=== PATIENT | female | born 1980 | race Caucasian/White ===

== ENCOUNTER 2017-05-11 09:54 | Inpatient (IN) | payer MEDICAID ==
[2017-05-11] MEDS: Lactated Ringer's 2,000 ML IV SCH ×2 (10:00→11:00)
[2017-05-11 10:07] VITALS: BMI 24.3
[2017-05-11] MEDS ORDERED: Lactated Ringer's 1,000 ML IV SCH ×2 (10:30→18:42)
[2017-05-11 10:53] LABS: BASO % 0.2 % (0.0-2.0); EOS % 0.3 % (0.0-4.0); HEMOGLOBIN 11.9 g/dL (12.0-16.0); LYMPH # 2.6 K/uL (1.0-4.3); LYMPH % 24.7 % (20.0-40.0); MEAN CELL VOLUME 90.3 fl (81.0-99.0); MEAN CORPUSCULAR HEMOGLOBIN 30.2 pg (27.0-31.0); MEAN CORPUSCULAR HGB CONC 33.4 g/dL (33.0-37.0); MEAN PLATELET VOLUME 9.6 fl (7.2-11.7); MONO # 0.7 K/uL (0.0-0.8); MONO % 6.7 % (0.0-10.0); NEUT # 7.2 K/uL (1.8-7.0); NEUT % 68.1 % (50.0-75.0); NRBC % 0.2 % (0.0-0.0); RBC 3.94 Mil/uL (3.80-5.20); RED CELL DISTRIBUTION WIDTH 14.8 % (11.5-14.5); WHITE BLOOD COUNT 10.5 K/uL (4.8-10.8)
--- NOTE | 2017-05-11 11:14 | OBHP ---
Datetime: 05/11/2017 11:09 IP Adm Impression: Term, intrauterine ; Active labor; Intact Membranes IP Admit Plan: Admit to unit; Initiate labor protocol IP Admit Plan Other: IV Ab Admit Comment, IP Provider: IUP at 40+w c/o CTX since 3am. No SROM. No VB. +FM Wants epidural. PMH: denies PSH denies NKA POBHx: 2; TOP x 1 PGYNH: +Chl trated at [facility] care: [facility] GBS+ A: IUP at 40w not in labor AMA decelined amnio Hx chl KAREN neg PLAN: admit to L_D IVF and anitbiotics labs labor, pain management, labor, delivery and discussed Pelvic Type - PN: Adequate Extremities - PN: Normal Abdomen - PN: Normal Back - PN: Normal Breast - PN: Not Done Lungs - PN: Normal Heart - PN: Normal Thyroid - PN: Normal Neurologic - PN: Normal HEENT - PN: Normal General - PN: Normal Presentation-Admit: Vertex IP Fetus A Comments: Sono ceph Membranes, Provider: Intact Pool Provider: Negative IP Hx Assessment: The History has been Reviewed and is Current EGA AdmitDate IP: 40.5 IP Chief Complaint: Uterine contractions FHR Category Provider Fetus A: Category I NICHD Decel Fetus A IP Provider: None Dilatation, Provider: 6 Genitourinary Exam: Normal DTRs - PN: Normal
[2017-05-11] MEDS ORDERED: Fentanyl/Bupivacaine HCl 250 ML EPI ONE ×2 (11:45→12:05)
[2017-05-11] MEDS ORDERED: Lidocaine Hydrochloride 0 ML INJ ONE (12:06)
--- NOTE | 2017-05-11 15:27 | OBPN ---
Datetime: 05/11/2017 15:20 IP Progress Impression: Reassuring heart rate IP Informed Consent Obtain: Vaginal Delivery; Risks, Benefits and Alternatives Discussed IP Procedures: Artificial ROM IP Progress Plan: Continue present management; Augmentation; Anticipate Vaginal Delivery Pool Provider: Positive Membranes, Provider: Ruptured Amniotic Fluid Color, Provider: Clear Contraction Comments Provider: 2-5 FHR - Baseline A Provider: 130 Presentation-Admit: Vertex IP Progress Note Comment: Notified that she was 8cm at 13:35pm. She feels saul after epidural. A; IUP at 40w Active phase of labor PLAN : second dose of PCN given AROM clear fluid...discussion about augmentation..she agrees with AROM Pitocin Vital Signs Provider: Reviewed NICHD Accel Fetus A IP Provider: [id number] FHR Category Provider Fetus A: Category I NICHD Variability Prov Fetus A: Moderate 6-25bpm Dilatation, Provider: 8-9 Effacement, Provider: 100 Station, Provider: 0 NICHD Decel Fetus A IP Provider: None Datetime: 05/11/2017 11:09 IP Fetus A Comments: Tarun garcia
[2017-05-11] MEDS ORDERED: Oxytocin 30 units/LR 500ML 30 UNITS/500 ML BAG IV SCH (15:30)
[2017-05-11] MEDS ORDERED: Oxytocin 30 units/LR 500ML 30 U/500 ML BAG IV ONE (15:57)
[2017-05-11] MEDS ORDERED: Oxycodone/Acetaminophen 5/325 mg Tab PO PRN ×2 (16:21→18:42)
[2017-05-11] MEDS ORDERED: Benzocaine/Menthol SPRAY TOP PRN ×2 (16:21→18:42)
--- NOTE | 2017-05-11 18:14 | OBDS ---
DELIVERY PERSONNEL Nurse Adjunct Instructor In Economics Certified: clementine Delivery Doctor: DR Alicia Zambrano Nurse: clementine Junior Web Designer: URMILA Mendoza Anesthesiologist: Dr Schumacher Fur Drummer: clementine Resident: clementine MATERNAL INFORMATION Delivery Anesthesia: Epidural Medications in Delivery: pitocin Estimated Blood Loss (ml): 150cc Placenta Cultured: No RN Comments: to baby boy;apgar9/9;placenta delivered complete;uneventful delivery Provider Comments: Over intact perineum, of live male . One loose nuchal cord noted and reduced. Infant was bulb suctioned, cord clamped, cut and placed on mother's chest. 9,9. Chevy centa delivered intact spontaneously. EBL 200cc She remained stable LABOR SUMMARY EDC: 05/06/2017 00:00 No. Babies in Womb: 0 Attempted: No Labor Anesthesia: Epidural LABOR INFORMATION Onset of Labor: 05/11/2017 03:00 Complete Dilatation: 05/11/2017 16:00 Other Ripening Agents: na Oxytocin: N/A Group B Beta Strep: Positive Antibiotics # of Doses: 2 Antibiotics Time of Last Dose: 1425 Steroids Given: None Reason Steroids Not Administered: Not Applicable MEMBRANES Membranes Rupture Method: Artificial Rupture of Membranes: 05/11/2017 15:20 Length of Rupture (hrs): 0.85 Amniotic Fluid Color: Clear Amniotic Fluid Amount: Moderate Amniotic Fluid Odor: Normal STAGES OF LABOR Stage 1 hrs: 13 Stage 1 min: 0 Stage 2 hrs: 0 Stage 2 min: 11 Stage 3 hrs: 0 Stage 3 min: 4 Total Time in Labor hrs: 13 Total Time in Labor min: 15 VAGINAL DELIVERY Episiotomy: None Laceration Extension: N/A Laceration Type: None Other Laceration: na Laceration Repair: na Initial Vag Sponge Count: 5 Final Vag Sponge Count: 5 Initial Vag Sharps Count: 0 Final Vag Sharps Count: 0 Sponge Count Correct: Yes Sharps Count Correct: Yes Count Comment: 5 laps One syringe BABY A INFORMATION Infant Delivery Date/Time: 05/11/2017 16:11 Method of Delivery: Vaginal Born in Route : No : N/A (Annotations: Data stored by [facility] on behalf of user) Forceps: N/A Vacuum Extraction: N/A Shoulder Dystocia : No SHOULDER DYSTOCIA BABY A Delivery Date/Time: 05/11/2017 16:11 PRESENTATION/POSITION BABY A Presentation: Cephalic Cephalic Presentation: Vertex Vertex Position: Left Occipital Anterior PLACENTA INFORMATION BABY A Placenta Delivery Time : 05/11/2017 16:15 Placenta Method of Delivery: Expressed Placenta Status: Delivered SCORES BABY A Heart Rate 1 min: >100 bpm Resp Effort 1 min: Good Cry Reflex Irritability 1 min: Cough or Sneeze or Pulls Away Muscle Tone 1 min: Active Motion Color 1 min: Body [place], Extremities Blue SCORE 1 MIN: 9 Heart Rate 5 min: >100 bpm Resp Effort 5 min: Good Cry Reflex Irritability 5 min: Cough or Sneeze or Pulls Away Muscle Tone 5 min: Active Motion Color 5 min: Body [place], Extremities Blue SCORE 5 MIN: 9 INFANT INFORMATION BABY A Gestational Age at Delivery: 40.0 Gestational Status: Term Infant Outcome : Liveborn Infant Condition : Stable Infant Sex: Male IDENTIFICATION/MEDS BABY A ID Band Number: [id number] ID Band Location: Left Leg; Left Arm WEIGHT/LENGTH BABY A Infant Birthweight (gms): 3500 Weight (lb): 7 Infant Weight (oz): 11 CORD INFORMATION BABY A No. Cord Vessels: 3 Nuchal Cord : Around Neck x1, Loose Nuchal Cord Other: na True Knot: na Infant Cord pH Baby Arterial: na Cord pH Baby Venous: na Cord Blood Taken: Yes Banking/Donate Info: na Infant Suction: Mouth; Nose; Pharynx
--- NOTE | 2017-05-12 07:45 | OBPPN ---
Datetime: 05/12/2017 05:47 PP Pain Prov: Within normal limits PP Nausea Prov: Denies PP Flatus Prov: Yes PP BM Prov: No PP Breasts Prov: Not Done PP Heart Prov: Normal PP Lungs Prov: Normal PP Abdomen/Uterus Prov: Normal PP Lochia Prov: Normal PP Vulva/Perineum Prov: Normal PP CVA Tenderness Prov: Not Done PP Extremities Prov: Normal PP C/S Incision Prov: Not Applicable PP Progress Prov: Normal PP Impression Prov: Normal progression PP Plan Prov: Continue present management PP Progress Note Prov: S: 36 YO PPD1, s/p NVD on 05/11/17. Pt is seen and examined by bedside this AM. No acute overnight events. Pt is endorsing mild abdominal soreness but mostly with ambulatio n. Pain is well controlled with pain meds. Pt is ambulating in the room and to the bathroom without a ny difficulties. Bleeding has improved since delivery. Tolerating PO diet. No BM but passing flatus. Denies chest pain, dyspnea, n/v, fever/chills, diarrhea, nausea/vomiting, and calf pain. No circ. O: VS: wnl, afebrile GEN: Awake, alert, NAD HEENT: EOMI, moist mucosa. LUNGS: CTA B/L, no wheezing, rhonci, or rales CVS: RRR, S1,S2 no murmurs ABD: ND, +BS, soft abdomen, firm fundus, 1cm above the umbilicus. EXT: No edema, neg calf tenderness NEURO/PSYCHI: AAOx3, no grossly focal deficit, preserved affect and mood. Assessment/Plan: 36 YO PPD1, s/p NVD on 05/11/17, gave to a baby boy. Pt remains afebr ile, tolerating pain with medication, good PO intake and urinating without any difficulties. Doing we ll on PPD1. -C/w regular diet as tolerated. -OOB with caution SCDs for DVT prophylaxis -C/w Percocet 5/325 mg and Ibuprofen 600 mg for pain prn -C/w Colace 100mg PO BID -Encourage and ambulating. Eloina Fatima, PGY I OB Hospitalist Addendum: Pt seen and examined by me. Agree w/ above. PPD 1 s/p , doing well, breast and bottle feeding. Continue current care. (ES) Vital Signs Provider PP: Reviewed; Within Normal Limits
[2017-05-12 07:55] LABS: HEMOGLOBIN 11.2 g/dL (12.0-16.0); MEAN CELL VOLUME 89.5 fl (81.0-99.0); MEAN CORPUSCULAR HEMOGLOBIN 29.8 pg (27.0-31.0); MEAN CORPUSCULAR HGB CONC 33.3 g/dL (33.0-37.0); RBC 3.75 Mil/uL (3.80-5.20); RED CELL DISTRIBUTION WIDTH 14.8 % (11.5-14.5); WHITE BLOOD COUNT 13.3 K/uL (4.8-10.8)
[2017-05-12] MEDS: Multivitamin With Minerals Tab PO SCH (08:43)
[2017-05-12] MEDS ORDERED: Multivitamin With Minerals Tab PO SCH (09:00)
[2017-05-13] MEDS: Multivitamin With Minerals Tab PO SCH (09:47)
[2017-05-13 19:12] VITALS: BP 112/58; PULSE 66; RESP 19; TEMP 98.2; O2SAT 98
== END 2017-05-13 15:05 | disposition home or self-care (01) | DRG 373 ==
LOC: H.EROB2 09:54 → H.L&D 09:55 → H.EROB2 10:09 → H.L&D 10:10 → H.OB/GYN 18:30
PROVIDERS: ADMIT Obstetrics & Gynecology; ATTEND Obstetrics & Gynecology
PROC: 10E0XZZ Delivery of Products of Conception, External Approach (ICD-10-PCS; principal; 2017-05-11)
PROC: 4A1HXCZ Monitoring of Products of Conception, Cardiac Rate, External Approach (ICD-10-PCS; 2017-05-11)
DX: O69.81X0 Labor and delivery complicated by cord around neck, without compression, not applicable or unspecified (principal); Z3A.40 40 weeks gestation of pregnancy; Z37.0 Single live birth; O99.824 Streptococcus B carrier state complicating childbirth